=== PATIENT | female | born 1955 | race Caucasian/White ===

== ENCOUNTER 2019-05-01 07:56 | Day surgery (SDC) | payer BC ==
[~2019-05-01] VITALS: Ht 162.6 cm; Wt 67.6 kg
[~2019-05-01 07:56] MED LIST: CYCL10 PO; HYDACE5 PO; IBUP600 PO; IBUP800 PO; META800 PO; Percocet 5-3251 EACH PO; RXMETA400 PO
--- NOTE | 2019-05-01 11:22 | NUR ---
PT ADMITTED TO [facility]. AGREES WITH PLANNED SURGERY. LUNG SOUNDS CLEAR. RIGHT ARM IN SPLINT,ELEVATED ON PILLOW.
--- NOTE | 2019-05-01 11:49 | NUR ---
REPORT TO KARRI LAMBERT RN.
--- NOTE | 2019-05-01 15:10 | NUR ---
Patient up to Ambulate independently. Gait steady. Discharge instructions reviewed with patient. Patient verbalizes understanding. Copy given to patient to take home. Dressing to procedure site clean, dry, intact with no visible drainage, swelling, erythema or bruising noted. Patient States Post-Procedure ride home has been arranged. Discharged via wheelchair to private car for ride home.
--- NOTE | 2019-05-05 12:26 | NUR ---
05/05/19 1226 Brook Collier VERIFICATIONS: EDIT CHART.
== END 2019-05-01 15:01 | disposition home or self-care (01) ==
LOC: ORD 07:56 → ORSCMMR 07:56
PROVIDERS: Orthopaedic Surgery
PROC: 0PSH04Z Reposition Right Radius with Internal Fixation Device, Open Approach (ICD-10-PCS; principal; 2019-05-01 12:00)
DX: S52.571A Other intraarticular fracture of lower end of right radius, initial encounter for closed fracture (principal)
CPT/HCPCS: A9270-GY; C1713; J0690; J1100; J1885; J2250; J2405; J2704; J3010; J7120

== ENCOUNTER 2025-06-01 10:51 | Day surgery (SDC) | payer OTHER, MEDICARE ==
[~2025-06-01] VITALS: Ht 162.6 cm; Wt 68.0 kg
[2025-06-01 11:12] VITALS: BP 140/79
--- NOTE | 2025-06-01 11:14 | NUR ---
Ambulatory in Day Surgery accompanied by her spouse. History, Chart, Medications and Allergies reviewed before start of procedure. Patient confirms NPO status and agrees with scheduled surgery. Pre-Op teaching done. Pt verbalizes understanding. Patient States Post-Procedure ride home has been arranged. Pt belongings placed underneath [facility] for safekeeping.
--- NOTE | 2025-06-01 11:31 | NUR ---
06/01/25 [place]1 Lucille Cerda CONFIRMED AND REVIEWED H&P, MEDCICATIONS, ALLERGIES, MEDICAL HISTORY, RESPIRATORY HISTORY, VITAL SIGNS, 3-LEAD EKG, CONSENTS, AND PHYSICIAN ORDERS. PATIENT CONFIRMS NPO STATUS AND AGREES WITH SCHEDULED PROCEDURE. MONITOR INTACT WITH CONTINUOUS PULSE OXIMETRY, CAPNOGRAPHY, 3-LEAD EKG, INTERMITTENT BP. SUPPLEMENTAL O2 TO BE TITRATED THROUGHOUT PROCEDURE TO MAINTAIN O2 SATURATION ABOVE 90%. PATIENT DETERMINED TO BE ASA APPROPRIATE FOR PROPOFOL SEDATION PRIOR TO START OF PROCEDURE BY DR. JAIN.
[2025-06-01 12:07] VITALS: BP 120/79
[2025-06-01 12:16] VITALS: BP 112/78
--- NOTE | 2025-06-01 12:23 | NUR ---
Patient up to Ambulate independently. Gait steady. Discharge instructions reviewed with patient. Patient verbalizes understanding. Copy given to patient to take home, [facility]. Patient States Post-Procedure ride home has been arranged. Discharged via wheelchair to private car for ride home. PT TOLERATING PO, REPORTS READY TO GO HOME.
== END 2025-06-01 12:24 | disposition home or self-care (01) ==
LOC: ORSCMMR 10:51 → ORD 11:00 → ORSCMMR 11:00 → ORD 12:00 → ORSCMMR 12:24
PROVIDERS: Surgery
PROC: 0DJD8ZZ Inspection of Lower Intestinal Tract, Via Natural or Artificial Opening Endoscopic (ICD-10-PCS; principal; 2025-06-01 11:00)
DX: R19.4 Change in bowel habit (principal); K64.1 Second degree hemorrhoids; R10.9 Unspecified abdominal pain; Z87.891 Personal history of nicotine dependence
CPT/HCPCS: J2704; J7120